=== PATIENT | female | born 2000 | race Caucasian/White ===

== ENCOUNTER 2019-05-02 10:36 | Inpatient (IN) ==
[2019-05-02 11:33] LABS: Appearance Urine Turbid (Clear); Bacteria Urine Automated 4+ (Negative); Bilirubin Urine Negative (Negative); Blood Urine 2+ (Negative); Color Urine Dark Yellow; Epithelial Cell Urine Auto >30 /lpf (0-5); Glucose Urine UA Negative (Negative); Ketones Urine 2+ (Negative); Leukocyte Esterase Urine 1+ (Negative); Nitrite Urine Negative (Negative); Protein Urine Trace (Negative); Specific Gravity Urine 1.025 (1.000-1.030); Urobilinogen Urine Negative (Negative); WBC Urine Automated >30 /hpf (0-5); pH Urine 6.5 (4.5-7.5)
[2019-05-02 11:47] LABS: Mucus Urine Present (None Prsent); RBC Urine Automated 0-4 /hpf (0-4)
[2019-05-02 12:01] LABS: Basophils # (auto) 0.04 K/uL (0-0.2); Basophils % (auto) 0.6 %; Eosinophils # (auto) 0.07 K/uL (0-0.5); Hematocrit (blood only) 42.9 % (37-47); Hemoglobin 14.5 g/dL (12.0-16.0); Immature Granulocytes # (auto) 0.02 K/uL (0.00-0.02); Immature Granulocytes % (auto) 0.3 %; Lymphocytes # (auto) 2.38 K/uL (1.2-3.4); Mean Corpuscular Hemoglobin 30.1 pg (25-34); Mean Corpuscular Hgb Conc 33.8 g/dL (32-36); Mean Corpuscular Volume 89.2 fL (80-100); Mean Platelet Volume 9.9 fL (7.4-10.4); Monocytes # (auto) 0.62 K/uL (0.11-0.59); Monocytes % (auto) 8.8 %; Neutrophils # (auto) 3.88 K/uL (1.4-6.5); Neutrophils % (auto) 55.3 %; Platelet Count 354 K/uL (130-400); RDW Standard Deviation 42.4 fL (36.4-46.3); Red Blood Count 4.81 M/uL (4.2-5.4); White Blood Count 7.01 K/uL (4.8-10.8)
[2019-05-02] MEDS ORDERED: LORazepam 0.5 MG TAB PO STA (12:10)
[2019-05-02] MEDS ORDERED: NICOTINE 7 MG/24 HR TDSY TD SCH (12:15)
[2019-05-02 12:19] LABS: Albumin Level 4.4 gm/dl (3.4-5.0); BUN Creatinine Ratio 10.3 (10-20); Calcium 9.8 mg/dl (8.5-10.1); Creatinine Clr Calc Pharmacy 80.8 ml/min; Est GFR (African American) 110.4; Est GFR (Non-African American) 95.3; Potassium 4.1 mmol/L (3.5-5.1)
[2019-05-02 12:29] LABS: Albumin Globulin Ratio 1.3 (0.9-2); Bilirubin,Total 0.6 mg/dl (0.2-1); Globulin 3.4 gm/dl (2.5-4.0); Thyroid Stimulating Hormone 1.02 uIu/ml (0.300-4.500); Total Protein 7.8 gm/dl (6.4-8.2)
[2019-05-02] MEDS ORDERED: CEFDINIR 300 MG CAP PO STA (12:44)
--- NOTE | 2019-05-02 12:44 | Emergency Department Note ---
Entered by Sasha Nicholas acting as a scribe for History of Present Illness General Chief complaint: Mental Health Evaluation Stated complaint: SEVERE DEPRESSION, SADNESS Time Seen by Provider: 05/02/19 11:49 Source: patient History of Present Illness Provider complaint: Worsening Depression Onset (ago): week(s) 1 Location: head Relieved By: + none Exacerbated By: + other (Stress) Associated symptoms: + loss of appetite and + other (Positive SI, panic attacks, difficulty sleeping) The patient is a 18 year old female who presents to the Emergency Room with complaints of worsening depression that began about 1 week ago. The patient states that her symptoms are exacerbated by the stress of her boyfriend breaking up with her and not relieved by anything specific. The patient reports experiencing loss of appetite and difficulty sleeping. Additionally, the patient reports experiencing suicidal ideations with a plan to cut herself and "bleed out" as well as panic attacks several times a day that last about 10-20 minutes at a time. The patient notes that she had a previous suicide attempt by cutting in October 2017 but did not tell anyone. The patient denies any history of previous inpatient treatment or history of any psychiatric medications. Additionally, the patient mentioned that there is family history of depression and suicide attempts on her mother's side. Home Medications Home Medications Medication Instructions Recorded Confirmed Type phenazopyridine [Azo Urinary Pain 97.5 mg PO DAILY PRN 05/02/19 05/02/19 History Relief] Allergies Allergy/AdvReac Type Severity Reaction Status Date / Time amoxicillin Allergy Rash Verified 05/02/19 12:59 doxycycline Allergy Rash Verified 05/02/19 12:59 Past Med/Surg History Medical History Depression (Acute) Suicide gesture (Acute) Family History Other Depression Social History Preferred Language: Slovenian Communication Ability: Effective Internet Marketing Intern Required: No Beliefs That Will Affect Care: None Feels Safe at Home: Yes Smoking Status: Current every day smoker (4 cigarettes daily) Tobacco Type: cigarettes ; Review of Systems See HPI for pertinent positives & negatives. and A total of 10 systems reviewed and were otherwise negative Physical Exam Vital Signs Vital Signs - 24 hr 05/02/19 10:43 05/02/19 12:36 Temperature 37.2 C Temperature Source Oral Pulse Rate 108 H Pulse Rate [Finger] 63 Respiratory Rate 16 17 Respiratory Effort / Characteristics Non-Labored Spontaneous Non-Labored Spontaneous Respiratory Depth Normal Normal Respiratory Pattern Regular Blood Pressure 135/87 Blood Pressure [Left Arm] 109/68 Blood Pressure Mean 103 Blood Pressure Mean [Left Arm] 81 Blood Pressure Position Sitting Pulse Oximetry 98 99 Oxygen Delivery Method Room Air Room Air Sepsis Recent Fever Within 48 Hours No Sepsis New/Unexplained Change in Mental Status No Sepsis Action Taken by Nursing No Action Required GENERAL: Patient is awake, alert, and in no acute distress. Patient is tearful, resting comfortably and showing some signs of anxiety. EYES: The conjunctivae are clear. The pupils are round and reactive. EARS, NOSE, MOUTH AND THROAT: The nose is without any evidence of any deformity. Mucous membranes are moist.Tongue is midline NECK: The neck is nontender and supple. RESPIRATORY: Normal respiratory effort is noted. There is no evidence of wheezing rhonchi or rales to auscultation. CARDIOVASCULAR: Regular rate and rhythm noted. There no murmurs rubs or gallops normal S1 normal S2 GASTROINTESTINAL: The abdomen is soft. Bowel sounds are present in all quadrants. Abdomen is nontender. MUSCULOSKELETAL/EXTREMITIES: There is no evidence of gross deformity. Full range of motion is noted in the hips and shoulders. SKIN: There is no obvious evidence of any rash. There are no petechiae, pallor or cyanosis noted. NEUROLOGIC: Patient is awake alert and oriented x3. PSYCH: Patient makes good eye contact for most of evaluation. Tearful and admits to suicidal ideation with plans to cut herself. Course Course 1205: Past medical records reviewed. The patient was evaluated in room A07. A complete history and physical exam was performed. 1350: The patient was accepted to [address] [place] [address]. Administered Medications Discontinued Medications Cefdinir (Omnicef Cap) 300 mg PO ONE STA Stop: 05/02/19 12:45 Last Admin: 05/02/19 13:01 Dose: 300 mg Documented by: [id number] Lorazepam (Ativan) 0.5 mg PO NOW STA Stop: 05/02/19 12:11 Last Admin: 05/02/19 12:27 Dose: 0.5 mg Documented by: [id number] Nicotine (Nicoderm Cq) 7 mg TD QAM MIL[place] Stop: 06/01/19 12:14 Last Admin: 05/02/19 13:00 Dose: 7 mg Documented by: [id number] Sertraline HCl (Zoloft) 25 mg PO NOW ONE Stop: 05/02/19 16:44 Last Admin: 05/02/19 17:14 Dose: 25 mg Documented by: [id number] Medical Decision Making Differential Diagnosis Differential diagnosis: Etiologies such as psychiatric disorder, infection, hypoglycemia, electrolyte abnormalities, cardiac sources, intracerebral event, toxicological process, neurologic disorder, as well as others were entertained. Medical Records Attestation: I reviewed the patient's medical records. Home Medications Current Medication List: was personally reviewed by me Laboratory Data Attestation: I reviewed the patient's lab results. Result diagrams: 05/02/19 11:39 05/02/19 11:39 Lab Results 05/02/19 05/02/19 05/02/19 Range/Units 11:00 11:00 11:39 WBC 7.01 (4.8-10.8) K/uL RBC 4.81 (4.2-5.4) M/uL Hgb 14.5 (12.0-16.0) g/dL Hct 42.9 (37-47) % MCV 89.2 (80-100) fL MCH 30.1 (25-34) pg MCHC 33.8 (32-36) g/dL RDW Std Deviation 42.4 (36.4-46.3) fL RDW Coeff of Vandana 13.0 (11.5-14.5) % Plt Count 354 (130-400) K/uL MPV 9.9 (7.4-10.4) fL Immature Gran % (Auto) 0.3 % Neut % (Auto) 55.3 % Lymph % (Auto) 34.0 % Appling % (Auto) 8.8 % Eos % (Auto) 1.0 % Baso % (Auto) 0.6 % Immature Gran # (Auto) 0.02 (0.00-0.02) K/uL Neut # (Auto) 3.88 (1.4-6.5) K/uL Lymph # (Auto) 2.38 (1.2-3.4) K/uL Appling # (Auto) 0.62 H (0.11-0.59) K/uL Eos # (Auto) 0.07 (0-0.5) K/uL Baso # (Auto) 0.04 (0-0.2) K/uL Sodium (136-145) mmol/L Potassium (3.5-5.1) mmol/L Chloride (98-107) mmol/L Carbon Dioxide (21-32) mmol/L Anion Gap (3-11) BUN (7-18) mg/dl Creatinine (0.6-1.2) mg/dl Est Cr Clr Drug Dosing ml/min Est GFR ( Amer) Est GFR (Non-Af Amer) BUN/Creatinine Ratio (10-20) Glucose (70-99) mg/dl Calcium (8.5-10.1) mg/dl Total Bilirubin (0.2-1) mg/dl AST (15-37) U/L ALT (12-78) U/L Alkaline Phosphatase (45-117) U/L Total Protein (6.4-8.2) gm/dl Albumin (3.4-5.0) gm/dl Globulin (2.5-4.0) gm/dl Albumin/Globulin Ratio (0.9-2) TSH (0.300-4.500) uIu/ml Urine Color Dark Yellow Urine Appearance Turbid A (Clear) Urine pH 6.5 (4.5-7.5) Ur Specific Freedom 1.025 (1.000-1.030) Urine Protein Trace H (Negative) Urine Glucose (UA) Negative (Negative) Urine Ketones 2+ H (Negative) Urine Blood 2+ H (Negative) Urine Nitrite Negative (Negative) Urine Bilirubin Negative (Negative) Urine Urobilinogen Negative (Negative) Ur Leukocyte Esterase 1+ H (Negative) Urine WBC (Auto) >30 H (0-5) /hpf Urine RBC (Auto) 0-4 (0-4) /hpf U Hyaline Cast (Auto) 5-10 H (0-5) /lpf U Epithel Cells (Auto) >30 H (0-5) /lpf Urine Bacteria (Auto) 4+ H (Negative) Granular Casts 1-5 H (0) /lpf Urine Mucus Present A (None Prsent) Urine Test (Negative) Urine Opiates Screen Neg (Neg) Ur Methadone, Qual Neg (Neg) Urine Barbiturates Neg (Neg) Ur Phencyclidine (PCP) Neg (Neg) U Amphetamin/Meth Scrn Neg (Neg) MDMA (Ecstasy) Screen Neg (Neg) U Benzodiazepines Scrn Neg (Neg) Ur Cocaine Metabolite Neg (Neg) U Marijuana (THC) Screen Pos H (Neg) Ethyl Alcohol mg/dL (0-3) mg/dl 05/02/19 05/02/19 05/02/19 Range/Units 11:39 11:39 12:20 WBC (4.8-10.8) K/uL RBC (4.2-5.4) M/uL Hgb (12.0-16.0) g/dL Hct (37-47) % MCV (80-100) fL MCH (25-34) pg MCHC (32-36) g/dL RDW Std Deviation (36.4-46.3) fL RDW Coeff of Vandana (11.5-14.5) % Plt Count (130-400) K/uL MPV (7.4-10.4) fL Immature Gran % (Auto) % Neut % (Auto) % Lymph % (Auto) % Appling % (Auto) % Eos % (Auto) % Baso % (Auto) % Immature Gran # (Auto) (0.00-0.02) K/uL Neut # (Auto) (1.4-6.5) K/uL Lymph # (Auto) (1.2-3.4) K/uL Appling # (Auto) (0.11-0.59) K/uL Eos # (Auto) (0-0.5) K/uL Baso # (Auto) (0-0.2) K/uL Sodium 140 (136-145) mmol/L Potassium 4.1 (3.5-5.1) mmol/L Chloride 108 H (98-107) mmol/L Carbon Dioxide 28 (21-32) mmol/L Anion Gap 4.0 (3-11) BUN 9 (7-18) mg/dl Creatinine 0.88 (0.6-1.2) mg/dl Est Cr Clr Drug Dosing 80.8 ml/min Est GFR ( Amer) 110.4 Est GFR (Non-Af Amer) 95.3 BUN/Creatinine Ratio 10.3 (10-20) Glucose 90 (70-99) mg/dl Calcium 9.8 (8.5-10.1) mg/dl Total Bilirubin 0.6 (0.2-1) mg/dl AST 11 L (15-37) U/L ALT 12 (12-78) U/L Alkaline Phosphatase 51 (45-117) U/L Total Protein 7.8 (6.4-8.2) gm/dl Albumin 4.4 (3.4-5.0) gm/dl Globulin 3.4 (2.5-4.0) gm/dl Albumin/Globulin Ratio 1.3 (0.9-2) TSH 1.020 (0.300-4.500) uIu/ml Urine Color Urine Appearance (Clear) Urine pH (4.5-7.5) Ur Specific Freedom (1.000-1.030) Urine Protein (Negative) Urine Glucose (UA) (Negative) Urine Ketones (Negative) Urine Blood (Negative) Urine Nitrite (Negative) Urine Bilirubin (Negative) Urine Urobilinogen (Negative) Ur Leukocyte Esterase (Negative) Urine WBC (Auto) (0-5) /hpf Urine RBC (Auto) (0-4) /hpf U Hyaline Cast (Auto) (0-5) /lpf U Epithel Cells (Auto) (0-5) /lpf Urine Bacteria (Auto) (Negative) Granular Casts (0) /lpf Urine Mucus (None Prsent) Urine Test Negative (Negative) Urine Opiates Screen (Neg) Ur Methadone, Qual (Neg) Urine Barbiturates (Neg) Ur Phencyclidine (PCP) (Neg) U Amphetamin/Meth Scrn (Neg) MDMA (Ecstasy) Screen (Neg) U Benzodiazepines Scrn (Neg) Ur Cocaine Metabolite (Neg) U Marijuana (THC) Screen (Neg) Ethyl Alcohol mg/dL < 3.0 (0-3) mg/dl Blood Pressure Blood Pressure Findings: Normal blood pressure Blood Pressure Disposition: further management by hospitalist ANGEL Lopez The patient is a 18-year-old female who presented to the emergency department for an evaluation mental health problems. The patient has had significant stressors recently. Her and her significant other recently broke up. She is had suicidal ideation with a plan to cut herself and bleed. The patient was medically cleared in the emergency department but does appear to have signs of urinary tract infection on urinalysis. She was treated with an antibiotic. I discussed the patient's laboratory results with her. She was also treated with medication for anxiety. She was evaluated by the mental health case specialist. She was felt to be a good candidate for inpatient management. She was referred to [facility] for possible inpatient management. This referral still pending. The patient was feeling somewhat improved on reevaluation. Ultimately the patient was evaluated by [facility] and was felt to be a good candidate. She was admitted to [facility] The 201 was signed by myself. Impression & Plan Depression, Suicidal ideation, UTI (urinary tract infection) Discharge Plan Visit Data *Final* Discharge Date/Time: 05/02/19 13:50 Chief Complaint: Mental Health Evaluation Stated Complaint: SEVERE DEPRESSION, SADNESS ED Provider: Demetrius Garcia Discharge Problem: Depression, Suicidal ideation, UTI (urinary tract infection) Patient Disposition: Admitted As Inpatient Discharge Instructions Interventions: ED Discharge Assessment Last Done: 05/02/19 13:50 Discharge Problem: Depression Qualifiers: Depression Type: unspecified Qualified Code(s): F32.9 - Major depressive disorder, single episode, unspecified UTI (urinary tract infection) Qualifiers: Urinary tract infection type: site unspecified Hematuria presence: without hematuria Qualified Code(s): N39.0 - Urinary tract infection, site not specified The scribe's documentation has been prepared under my direction and personally reviewed by me in its entirety. I confirm that the note above accurately reflects all work, treatment, procedures, and medical decision making performed by me.
[2019-05-02 12:47] LABS: Pregnancy Test, Urine Negative (Negative)
[2019-05-02 13:05] LABS: Amphetamines+Metham, Urine Neg (Neg); Barbiturates, Urine Neg (Neg); Benzodiazepine, Urine Neg (Neg); Cocaine, Urine Neg (Neg); MDMA (Ecstacy), Urine Neg (Neg); Methadone, Urine Neg (Neg); Opiate, Urine Neg (Neg); Phencyclidine, Urine Neg (Neg)
[2019-05-02] MEDS ORDERED: ALUMINUM/MAGNESIUM SUSP 30 ML UDC PO PRN (13:28)
[2019-05-02] MEDS ORDERED: BISMUTH SUBSALICYLATE PER ML OMNICELL CHARGE PO PRN (13:28)
[2019-05-02] MEDS ORDERED: ACETAMINOPHEN 325 MG TAB PO PRN (13:28)
[2019-05-02] MEDS ORDERED: MAGNESIUM HYDROXIDE SUSP 30 ML UDC PO PRN (13:28)
[2019-05-02] MEDS ORDERED: SODIUM CHLORIDE 0.65% NA SOLN 45 ML (OCEAN) PRN (13:28)
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
[2019-05-02] MEDS ORDERED: SERTRALINE HCL 50 MG TABLET PO ONE (16:43)
[2019-05-02] MEDS ORDERED: PHENAZOPYRIDINE HCL 100 MG TAB PO PRN (16:50)
[2019-05-02] MEDS: NICOTINE POLACRILEX 2 MG GUM MT PRN (20:50)
[2019-05-03] MEDS ORDERED: SERTRALINE HCL 50 MG TABLET PO SCH (09:00)
[2019-05-03] MEDS: NICOTINE POLACRILEX 2 MG GUM MT PRN ×3 (09:16→13:59)
[2019-05-03] MEDS: NICOTINE 7 MG/24 HR TDSY TD SCH (09:17)
--- NOTE | 2019-05-03 17:12 | Psychiatric Progress Note ---
Date of Service May 03, 2019 Impression / Recommendations Impression 18-year-old female admitted voluntarily for inpatient psychiatric hospitalization due to worsening symptoms of depression and suicidal ideation with plan to deeply cut herself. Pt reports a history of depression and anxiety, but significant worsening of symptoms after a recent break-up with her boyfriend of 1.5 years. Pt had a previous trial of fluoxetine with limited response. She is requesting initiation of medication to target anxiety and depressive symptoms. Encouraged therapeutic intervention to process events of the break-up, but also discussed SSRI initiation based on history of anxiety and depression diagnosis. Risks, benefits, and potential side effects of sertraline reviewed. Pt verbalized understanding and is agreeable with initiating the medication. Pt also questions the diagnosis of borderline personality disorder, reporting a family history of the condition and admitting to identifying with several of the criteria. Will gather collateral information from family and continue to educate on the diagnosis. Encouraged routine outpatient therapy to address development of healthy and effective coping strategies. Will encourage patient involve parents in a family meeting to discuss aftercare and safety planning. She will be encouraged to participate in group and recreational programming. Pt does admit to continued suicidality and inability to contract for safety outside of the hospital setting. Inpatient psychiatric treatment is medically necessary based on previous suicide attempt, ongoing suicidal ideation, and limited opportunity at this point to appropriately mitigate risk factors. She is at high risk of suicide if discharged prematurely. The patient, herself, tells me that she knows about the diagnosis of borderline personality disorder because her mother carries that diagnoses and she is familiar with many of her mother's symptoms. She feels that she, the patient, may have at least certain borderline traits, but she also believes that she may not have the actual disorder. Specifically, she is able to self identify her tendency to avoid and greatly fear abandonment, and her tendency to idealize others, and her propensity towards relying on the feedback of others as a means of forming her identity. At the same time, the patient has been able to maintain long-term friendships, and while she recognizes that she had allowed herself, in an unhealthy way, to become overly dependent upon her boyfriend and overly "clingy," she does clearly have insight into the situation and recognizes that her future happiness is going to need to come primarily from inside. She also says that she recognizes that she may be falling into a pattern that is similar to that of her mother, namely falling into dependent relationships with men. Specifically, she is the patient uses the phrase "modeled [behavior]" within this context. She does not have a history of favorable response to fluphenazine at higher dosages. She is currently tolerating sertraline well. Difficulty sleeping is a contributory factor, the patient is spending a great deal of time in the middle of the night ruminating. "By morning, my thoughts of suicide have returned," the patient states. While the patient clearly does have difficulty regulating her mood, I am not convinced that she would be criteria for borderline personality disorder. Instead, she is 18, has not had a great deal of life experiences, understands that she is overreacting to a romantic disappointment, has been able to maintain longstanding close relationships, and, while not necessarily inconsistent with borderline personality disorder, the patient is fairly high functioning in a number of spheres. (1) Suicidal ideation: 05/02 - Admitted to a locked inpatient behavioral health unit, on q15 minute safety checks - Encourage medication initiation/adjustments as indicated - Encourage participation in group and recreational therapies - Gather collateral information from outpatient providers - Suggest family meeting to involve outpatient supports in safety planning - Arrange appropriate aftercare 05/03 -The patient continues to say that it is hard for her to imagine the future without her boyfriend. She notes that, intellectually, she realizes that she is young, "there plenty of fish in the sea," and that it is unhealthy and unwise to allow oneself to designate to another person responsibility for ones on happiness. However, there is fear of being alone, losing her boyfriend permanently, and combining those thoughts with the fact that she believes that she, herself, "poisoned" the relationship by being excessively possessive and inappropriately jealous is greatly distressing to her. -The patient continues to note that she is having thoughts of suicide, although she reliably and convincingly contracts for safety on the unit. (2) Generalized anxiety disorder: 05/02 - Historical diagnosis of generalized anxiety disorder, with history of panic attacks as well - Initiate sertraline 25mg one-time dose today; increasing to 50mg qAM starting tomorrow morning - risks, benefits, and potential side effects reviewed including black box warning for increased suicidality in children and adolescents - patient verbalized understanding and is agreeable with initiating the medication - PRN hydroxyzine for acute anxiety - Encourage participation in group and recreational programming, development of healthy and effective coping strategies - Encourage outpatient therapy and psychiatric medication management - Family meeting with parents 05/03 -The patient tells us that her mother regularly tells the patient that she, the patient, has many of the same traits as the mother, a woman who reportedly carries a diagnosis of borderline personality disorder. Within this context, it will be important to help the patient differentiate between herself, her mother symptoms, and her own struggles. -The patient has tolerated sertraline well, and we will increase the dose of sertraline to 75 mg starting tomorrow. Hopefully, sertraline will be helpful both for depression and anxiety. (3) Depression: 05/02 - Historical diagnosis of major depressive disorder. Current presentation may be more consistent with diagnosis of adjustment disorder or acute stress reaction. Pt also identifies with borderline personality disorder traits which may affect ability to cope and may be further contributing to depressive symptoms, if not explaining them entirely - Sertraline initiated for generalized anxiety as above, likely to also have benefit for mood symptoms - Encourage group and recreational programming to process recent break-up and develop healthy and effective coping strategies 05/03 -Patient does have a history of recurrent depressions. These depressions are not necessarily linked to situational factors and cannot be explained entirely by maladaptive coping strategies and difficulty regulating mood under stress. -As above, the patient's dose of sertraline will be increased to 75 mg tomorrow, and will continue to be titrated as indicated. We will also add trazodone 50 mg at bedtime for sleep, and also as an adjunct to sertraline. -The patient seems to have a good facility with operational thinking and I believe that she will benefit from psychotherapy, possibly cognitive behavioral therapy. This should be pursued on an outpatient basis. (4) Personality disorder: 05/02 - Pt reports identification with criteria for borderline personality disorder. Unclear with limited history if symptoms are stemming for personality disorder or better explained by learned behaviors in how to manage relationships - given family history of borderline personality disorder - Strained and co-dependent traits within relationships - Encourage routine visits with a consistent outpatient therapist - explore DBT practices - Gather collateral information from parents to further determine history of symptoms and consistency with this diagnosis 05/03 -Interestingly, the patient is able to tell us which personality traits she believes that she shares with her mother, a woman who reportedly carries a diagnosis of borderline personality disorder. -Some of the behaviors in question seem to have been modeled by the patient's mother, most specifically the instilled belief that ones happiness depends almost entirely on once finding a universally faithful life partner. However, there also appears to be a number of ways in which the patient is not like her mother, and it may be more useful to focus on treating the patient's depression, and helping the patient address issues specific to low self-esteem and immature coping strategies. (5) Abnormal urinalysis: 05/02 - Pt reports frequent, recurrent UTI's and yeast infections - denying present symptoms - Pt was given initial dose of Cefdinir 300mg in the ED; will suspend antibiotic treatment until/unless symptoms are present - Sensitivities ordered in order to guide antibiotic therapy should it be indicated 05/03 -No symptoms of a UTI are reported today. Inventory Assets Strengths: Willingness for treatment, outpatient psychiatric evaluations already scheduled Needs: assistance with development of effective coping strategies, involvement of parents in treatment Risk Factors Assessment Male: No : Yes Do You Have Access To A Gun?: No Health Problems: No Mental Health Diagnoses: Yes Substance Use Disorders: No Previous Attempt: Yes Previous Attempt; Didn't Tell Anyone: Yes Family History of Suicide: Yes Previous Psychiatric Hospitalization: No Hopelessness: Yes Smoker: Yes Protective Factors Assessment Restorationist Beliefs: No : No Responsible for Young Children: No Employed: Yes ([employer]) Stable Relationships: No Supportive Family: Yes Interval History Chief Complaint "I'm having trouble coping." Review of Systems Sleep Information Total Hours of Sleep: 5.75 Sleep Comments: Elizabet sat up talking with room mate prior to going to bed. Meal Information Percent Meal Consumed - Breakfast: 75 Percent Meal Consumed - Lunch: 50 Percent Meal Consumed - Dinner: 50 Subjective Subjective Patient was seen & assessed and interval progress reviewed with treatment team. I met with the patient individually in order to assess her current mental status, evaluate her response to treatment, make any necessary changes in the patient's treatment regimen together with the patient, and address issues, questions and concerns that may arise. The patient began today by describing the circumstances that had led to her admission. Specifically, she reports that she had been in a fairly long-term relationship with a boyfriend and had allowed herself to become emotionally dependent upon him. The patient notes that the relationship seemed to be "perfect" and she had felt as if the boyfriend was "exactly the right fit." However, she acknowledges that within that context she became progressively more "clingy," and, primarily out of a fear of losing him, she began to progressively overinterpret (her word) things that might be considered to be subtle signs that he was detaching from her, or was pursuing a different romantic interest. The relationship was also complicated by the fact that she has a job that requires her to work a standard "9 to 5" workday, while her boyfriend is an assistant corporation counsel at a local [employer], works afternoons and evenings, and sometimes does not get home until approximately 2 AMjust about 4 hours before the patient has to awaken to go to work. She explains, "since last summer, we tried to base the relationship on seeing each other for a few hours in the middle of the night, and I lost a lot of sleep because of it. Also, he was not necessarily ready to go right to bed when he came home, but if he did not we did not see each other at all, except for maybe on days off." The patient said that she had insight into the fact that she was being overly dependent on the relationship and that she was sometimes accusing him of imagined infidelities when no true compelling evidence existed, and when he eventually told her last week that he wanted to "end the relationship, but stay friends," she was overwhelmed by self recrimination for having made things so unpleasant for him through her false accusations. She also notes that his abruptly ending the relationship was always her worst fear. The patient goes on to explain that her mother carries a diagnosis of jack rderline personality disorder, and, further and within this context, has always been entirely emotionally dependent on her ; i.e., the patient's father. The patient notes that she feels that perhaps she has developed some of her mother's borderline personality traits, particularly her fear of abandonment and her difficulty tolerating being alone. She acknowledges that she has a history of 2 previous suicide attempts, earlier in her teenage years. In one instance, she drank a small amount of nail yoruba remover, brought the matter to her mother's attention, received medical attention, but was not hospitalized. In another more recent occurrence, the patient cut her thigh with a sharp object. Her suicidal thoughts at the time of admission included the thought of using a card boxer or razor blade to cut her thighs and from exsanguination. She acknowledges that she had not been able to contract for safety, and notes that she continues to have thoughts of suicide, although she is able to contract for safety in the hospital. Staff report is that the patient has been fairly active in the milieu, and also is participating actively in treatment. The patient has been started on sertraline and her current dose is 50 mg a day. The various side effects of sertraline were reviewed with the patient, and she said that, so far, she has not experienced anywith the possible exception of fatigue, although she also notes that she has been sleeping very poorly and believes that, in all likelihood, her somnolence is related to her poor sleep. Her specific report regarding sleep is that she awakens frequently throughout the night, ruminates about the loss of her relationship, and has difficulty falling back to sleep. Report that she had slept nearly 6 hours last night as refused by the patient, and she says "I did not get out of bed, I may have My shot, but I was awake for a lot of the time last night." We also discussed various treatment options for insomnia and depression. Physical Exam Psychiatric Orientation: alert, oriented x 3 and cooperative Apperance: appropriately dressed and appropriately groomed Eye Contact: good eye contact Motor Behavior: steady gait and station She sits in a chair with her legs elevated and her chin on her knees, and rocks gently [id number] during much of the interview. Speech: normal rate/rhythm/volume of speech Affect: + tearful affect The patient also smiles appropriately. Mood: + depressed mood Thought Process: goal directed thought process and linear/logical thought process Thought Content: reality based without delusions Suicidal Thoughts: + reports suicidal thoughts Patient reports that she is continuing to have thoughts of suicide, although her mood has gotten somewhat better. She is peter for safety in the hospital. Homicidal Thoughts: denies homicidal thoughts Hallucinations: no auditory hallucinations Cognition: recent memory grossly intact, remote memory grossly intact, attention grossly intact and language grossly intact Estimated Intelligence: + above average estimated intelligence This is based on the patient's vocabulary, ability to think in the abstract, and fund of knowledge. Insight: good insight Judgement: + limited judgement Vital Signs (Past 24 Hours) Last Vital Signs Temp 36.6 C 05/03/19 06:00 Pulse 66 05/03/19 06:00 Resp 16 05/03/19 06:00 BP 129/74 05/03/19 06:00 Pulse Ox 99 05/02/19 13:50 Results & Data Current Inpatient Medications Current Inpatient Medications: Current Inpatient Medications Acetaminophen (Tylenol) 650 mg PO Q4H PRN PRN Reason: Headache or Minor Fever Stop: 06/01/19 13:27 Al Hydrox/Mg Hydrox/Simethicone (Maalox) 30 ml PO Q4H PRN PRN Reason: GI Upset Stop: 06/01/19 13:27 Bismuth Subsalicylate (Kaopectate) 15 ml PO PRN PRN PRN Reason: Loose Stool Stop: 06/01/19 13:27 Hydroxyzine HCl (Vistaril) 50 mg PO HSZ PRN PRN Reason: Insomnia Stop: 06/01/19 13:27 Hydroxyzine HCl (Vistaril) 25 mg PO Q4H PRN PRN Reason: Anxiety Stop: 06/01/19 13:27 Magnesium Hydroxide (Milk Of Magnesia) 30 ml PO DAILY PRN PRN Reason: Constipation Stop: 06/01/19 13:27 Miscellaneous (Remove Nicoderm Patch) 1 ea N/A DAILY@[id number] [facility] Stop: 06/02/19 08:58 Last Admin: 05/03/19 09:22 Dose: 1 ea Documented by: Nicotine (Nicoderm Cq) 7 mg TD [facility] Stop: 06/02/19 08:59 Last Admin: 05/03/19 09:17 Dose: 7 mg Documented by: Nicotine Polacrilex (Nicorette 2mg) 1 piece MT PRN PRN PRN Reason: Nicotine Withdrawal Stop: 06/01/19 13:32 Last Admin: 05/03/19 13:59 Dose: 1 piece Documented by: Phenazopyridine HCl (Pyridium) 100 mg PO DAILY PRN PRN Reason: DYSURIA/URINARY DISCOMFORT Stop: 06/01/19 16:49 Sertraline HCl (Zoloft) 50 mg PO QAM [facility] Stop: 06/02/19 08:59 Last Admin: 05/03/19 09:10 Dose: 50 mg Documented by: Sodium Chloride ([place] Nasal) 1 - 2 sprays NA PRN PRN PRN Reason: Nasal Dryness/Congestion Stop: 06/01/19 13:27 Mental Health & Subst Abuse Tx Psychiatrist Name of Psychiatrist: Jersey De La Torre - Dr. Layla Alejandro Psychiatrist's Phone Number: Date of Appointment with Psychiatrist: 06/10/19 Time of Appointment with Psychiatrist: 9:15 AM Therapist Name of Therapist: Alec Smith Therapist's Phone Number: Date of Therapist Appointment: 05/14/19 Time of Therapist Appointment: 2:00 PM Software Quality Specialist Name of Software Quality Specialist: None Post Discharge Appointments Primary Care Physician Name Of Family Doctor: Jersey De La Torre- [facility] Phone Number: Date of Appointment with PCP: 05/10/19 Time of Appointment with PCP: 1:25 PM Contact Information Discharge Discharge Address: [address] [place] [address] [id number] (1) Depression Depression Type: unspecified Qualified Code(s): F32.9 - Major depressive disorder, single episode, unspecified
[2019-05-03] MEDS: TRAZODONE HCL 50 MG TAB PO SCH (21:51)
[2019-05-04 07:56] LABS: Marijuana Quant, GCMS Urine 1290 ng/mL (<5)
[2019-05-04] MEDS ORDERED: TRAZODONE HCL 50 MG TAB PO PRN (10:00)
[2019-05-04] MEDS: SERTRALINE HCL 50 MG TABLET PO SCH (10:03)
[2019-05-04] MEDS: NICOTINE 7 MG/24 HR TDSY TD SCH (10:05)
[2019-05-04] MEDS: NICOTINE POLACRILEX 2 MG GUM MT PRN (12:06)
--- NOTE | 2019-05-04 13:07 | Psychiatric Progress Note ---
Date of Service May 04, 2019 Impression / Recommendations Impression 18-year-old female admitted voluntarily for inpatient psychiatric hospitalization due to worsening symptoms of depression and suicidal ideation with plan to deeply cut herself. She remains at significant risk of d ecompensation if released prematurely. (1) Suicidal ideation: 05/02 - Admitted to a locked inpatient behavioral health unit, on q15 minute safety checks - Encourage medication initiation/adjustments as indicated - Encourage participation in group and recreational therapies - Gather collateral information from outpatient providers - Suggest family meeting to involve outpatient supports in safety planning - Arrange appropriate aftercare 05/03 -The patient continues to say that it is hard for her to imagine the future without her boyfriend. She notes that, intellectually, she realizes that she is young, "there plenty of fish in the sea," and that it is unhealthy and unwise to allow oneself to designate to another person responsibility for ones on happiness. However, there is fear of being alone, losing her boyfriend permanently, and combining those thoughts with the fact that she believes that she, herself, "poisoned" the relationship by being excessively possessive and inappropriately jealous is greatly distressing to her. -The patient continues to note that she is having thoughts of suicide, although she reliably and convincingly contracts for safety on the unit. (2) Generalized anxiety disorder: 05/02 - Historical diagnosis of generalized anxiety disorder, with history of panic attacks as well - Initiate sertraline 25mg one-time dose today; increasing to 50mg qAM starting tomorrow morning - risks, benefits, and potential side effects reviewed including black box warning for increased suicidality in children and adolescents - patient verbalized understanding and is agreeable with initiating the medication - PRN hydroxyzine for acute anxiety - Encourage participation in group and recreational programming, development of healthy and effective coping strategies - Encourage outpatient therapy and psychiatric medication management - Family meeting with parents 05/03 -The patient tells us that her mother regularly tells the patient that she, the patient, has many of the same traits as the mother, a woman who reportedly carries a diagnosis of borderline personality disorder. Within this context, it will be important to help the patient differentiate between herself, her mother symptoms, and her own struggles. -The patient has tolerated sertraline well, and we will increase the dose of sertraline to 75 mg starting tomorrow. Hopefully, sertraline will be helpful both for depression and anxiety. (3) Depression: 05/02 - Historical diagnosis of major depressive disorder. Current presentation may be more consistent with diagnosis of adjustment disorder or acute stress reaction. Pt also identifies with borderline personality disorder traits which may affect ability to cope and may be further contributing to depressive symptoms, if not explaining them entirely - Sertraline initiated for generalized anxiety as above, likely to also have benefit for mood symptoms - Encourage group and recreational programming to process recent break-up and develop healthy and effective coping strategies 05/03 -Patient does have a history of recurrent depressions. These depressions are not necessarily linked to situational factors and cannot be explained entirely by maladaptive coping strategies and difficulty regulating mood under stress. -As above, the patient's dose of sertraline will be increased to 75 mg tomorrow, and will continue to be titrated as indicated. We will also add trazodone 50 mg at bedtime for sleep, and also as an adjunct to sertraline. -The patient seems to have a good facility with operational thinking and I believe that she will benefit from psychotherapy, possibly cognitive behavioral therapy. This should be pursued on an outpatient basis. (4) Personality disorder: 05/02 - Pt reports identification with criteria for borderline personality d isorder. Unclear with limited history if symptoms are stemming for personality disorder or better explained by learned behaviors in how to manage relationships - given family history of borderline personality disorder - Strained and co-dependent traits within relationships - Encourage routine visits with a consistent outpatient therapist - explore DBT practices - Gather collateral information from parents to further determine history of symptoms and consistency with this diagnosis 05/03 -Interestingly, the patient is able to tell us which personality traits she believes that she shares with her mother, a woman who reportedly carries a diagnosis of borderline personality disorder. -Some of the behaviors in question seem to have been modeled by the patient's mother, most specifically the instilled belief that ones happiness depends almost entirely on once finding a universally faithful life partner. However, there also appears to be a number of ways in which the patient is not like her mother, and it may be more useful to focus on treating the patient's depression, and helping the patient address issues specific to low self-esteem and immature coping strategies. (5) Abnormal urinalysis: 05/02 - Pt reports frequent, recurrent UTI's and yeast infections - denying present symptoms - Pt was given initial dose of Cefdinir 300mg in the ED; will suspend antibiotic treatment until/unless symptoms are present - Sensitivities ordered in order to guide antibiotic therapy should it be indicated 05/03 -No symptoms of a UTI are reported today. Inventory Assets Strengths: Willingness for treatment, outpatient psychiatric evaluations already scheduled Needs: assistance with development of effective coping strategies, involvement of parents in treatment Risk Factors Assessment Male: No : Yes Do You Have Access To A Gun?: No Health Problems: No Mental Health Diagnoses: Yes Substance Use Disorders: No Previous Attempt: Yes Previous Attempt; Didn't Tell Anyone: Yes Family History of Suicide: Yes Previous Psychiatric Hospitalization: No Hopelessness: Yes Smoker: Yes Protective Factors Assessment Worship Beliefs: No : No Responsible for Young Children: No Employed: Yes ([employer]) Stable Relationships: No Supportive Family: Yes Interval History Chief Complaint "I'm feeling a little better than when I came in". Review of Systems Sleep Information Total Hours of Sleep: 6 Sleep Comments: Elizabet sat up talking with room mate prior to going to bed. Meal Information Percent Meal Consumed - Breakfast: 50 Percent Meal Consumed - Lunch: 50 Percent Meal Consumed - Dinner: 75 Subjective Subjective Patient was seen & assessed and interval progress reviewed with nursing and social work. States she felt jittery for a bit yesterday afternoon. No GI concerns. States her UTIs and pelvic issues have been ongoing for months. Review of chart reveals given 1 dose cephalosporin in ED, today culture came back essentially mixed skin karol, no sensitities to follow. will need family meeting. Physical Exam Psychiatric Orientation: alert Apperance: appropriately dressed and appropriately groomed Motor Behavior: steady gait and station Speech: normal rate/rhythm/volume of speech Affect: + depressed affect Mood: + depressed mood Thought Process: linear/logical thought process Thought Content: no delusions Suicidal Thoughts: denies suicidal thoughts Homicidal Thoughts: denies homicidal thoughts Hallucinations: no auditory hallucinations and no visual hallucinations Cognition: recent memory grossly intact and language grossly intact Estimated Intelligence: consistent with education level Insight: + limited insight Judgement: + limited judgement Vital Signs (Past 24 Hours) Last Vital Signs Temp 36.6 C 05/04/19 06:45 Pulse 66 05/04/19 06:46 Resp 18 05/04/19 06:45 BP 128/90 05/04/19 06:46 Pulse Ox 99 05/02/19 13:50 Results & Data Laboratory Results Laboratory Results - last 24 hr 05/02/19 11:00 U Marijuana THC Carboxy 1290 H Drug Screen Comment SEE NOTE Current Inpatient Medications Current Inpatient Medications: Current Inpatient Medications Acetaminophen (Tylenol) 650 mg PO Q4H PRN PRN Reason: Headache or Minor Fever Stop: 06/01/19 13:27 Al Hydrox/Mg Hydrox/Simethicone (Maalox) 30 ml PO Q4H PRN PRN Reason: GI Upset Stop: 06/01/19 13:27 Bismuth Subsalicylate (Kaopectate) 15 ml PO PRN PRN PRN Reason: Loose Stool Stop: 06/01/19 13:27 Hydroxyzine HCl (Vistaril) 25 mg PO Q4H PRN PRN Reason: Anxiety Stop: 06/01/19 13:27 Magnesium Hydroxide (Milk Of Magnesia) 30 ml PO DAILY PRN PRN Reason: Constipation Stop: 06/01/19 13:27 Miscellaneous (Remove Nicoderm Patch) 1 ea N/A DAILY@0859 [facility] Stop: 06/02/19 08:58 Last Admin: 05/04/19 10:06 Dose: 1 ea Documented by: Nicotine ([facility]oderm Cq) [facility] Stop: 06/02/19 08:59 Last Admin: 05/04/19 10:05 Dose: 7 mg Documented by: Nicotine Polacrilex (Nicorette 2mg) 1 piece MT PRN PRN PRN Reason: Nicotine Withdrawal Stop: 06/01/19 13:32 Last Admin: 05/04/19 12:06 Dose: 1 piece Documented by: Phenazopyridine HCl (Pyridium) 100 mg PO DAILY PRN PRN Reason: DYSURIA/URINARY DISCOMFORT Stop: 06/01/19 16:49 Sertraline HCl (Zoloft) 75 [facility] Stop: 06/03/19 08:59 Last Admin: 05/04/19 10:03 Dose: 75 mg Documented by: Sodium Chloride ([place] Nasal) 1 - 2 sprays NA PRN PRN PRN Reason: Nasal Dryness/Congestion Stop: 06/01/19 13:27 Trazodone HCl (Desyrel) 50 mg PO HS [facility] Stop: 06/02/19 21:59 Last Admin: 05/03/19 21:51 Dose: 50 mg Documented by: Trazodone HCl (Desyrel) 50 mg PO HS PRN PRN Reason: if first dose ineffective Stop: 06/03/19 09:59 Mental Health & Subst Abuse Tx Psychiatrist Name of Psychiatrist: Jersey De La Torre - Dr. Layla Alejandro Psychiatrist's Phone Number: Date of Appointment with Psychiatrist: 06/10/19 Time of Appointment with Psychiatrist: 9:15 AM Therapist Name of Therapist: Alec Smith Therapist's Phone Number: Date of Therapist Appointment: 05/14/19 Time of Therapist Appointment: 2:00 PM Solutions Specialist Name of Solutions Specialist: None Post Discharge Appointments Primary Care Physician Name Of Family Doctor: Jersey De La Torre- [facility] Phone Number: Date of Appointment with PCP: 05/10/19 Time of Appointment with PCP: 1:25 PM Contact Information Discharge Discharge Address: [facility] [place] [address] (1) Depression Depression Type: unspecified Qualified Code(s): F32.9 - Major depressive disorder, single episode, unspecified
[2019-05-04] MEDS: TRAZODONE HCL 50 MG TAB PO SCH (21:16)
[2019-05-05] MEDS: SERTRALINE HCL 50 MG TABLET PO SCH (08:44)
[2019-05-05] MEDS: NICOTINE 7 MG/24 HR TDSY TD SCH (08:49)
[2019-05-05] MEDS ORDERED: SERTRALINE HCL 50 MG TABLET PO ONE (09:21)
--- NOTE | 2019-05-05 11:32 | Psychiatric Progress Note ---
Date of Service May 05, 2019 Impression / Recommendations Impression 18-year-old female admitted voluntarily for inpatient psychiatric hospitalization due to worsening symptoms of depression and suicidal ideation with plan to deeply cut herself. Mood is improving with sleep and Zoloft trial. (1) Suicidal ideation: 05/02 - Admitted to a locked inpatient behavioral health unit, on q15 minute safety checks - Encourage medication initiation/adjustments as indicated - Encourage participation in group and recreational therapies - Gather collateral information from outpatient providers - Suggest family meeting to involve outpatient supports in safety planning - Arrange appropriate aftercare 05/03 -The patient continues to say that it is hard for her to imagine the future without her boyfriend. She notes that, intellectually, she realizes that she is young, "there plenty of fish in the sea," and that it is unhealthy and unwise to allow oneself to designate to another person responsibility for ones on happiness. However, there is fear of being alone, losing her boyfriend permanently, and combining those thoughts with the fact that she believes that she, herself, "poisoned" the relationship by being excessively possessive and inappropriately jealous is greatly distressing to her. -The patient continues to note that she is having thoughts of suicide, although she reliably and convincingly contracts for safety on the unit. (2) Generalized anxiety disorder: 05/02 - Historical diagnosis of generalized anxiety disorder, with history of panic attacks as well - Initiate sertraline 25mg one-time dose today; increasing to 50mg qAM starting tomorrow morning - risks, benefits, and potential side effects reviewed including black box warning for increased suicidality in children and adolescents - patient verbalized understanding and is agreeable with initiating the medication - PRN hydroxyzine for acute anxiety - Encourage participation in group and recreational programming, development of healthy and effective coping strategies - Encourage outpatient therapy and psychiatric medication management - Family meeting with parents 05/03 -The patient tells us that her mother regularly tells the patient that she, the patient, has many of the same traits as the mother, a woman who reportedly carries a diagnosis of borderline personality disorder. Within this context, it will be important to help the patient differentiate between herself, her mother symptoms, and her own struggles. -The patient has tolerated sertraline well, and we will increase the dose of sertraline to 75 mg starting tomorrow. Hopefully, sertraline will be helpful both for depression and anxiety. (3) Depression: 05/02 - Historical diagnosis of major depressive disorder. Current presentation may be more consistent with diagnosis of adjustment disorder or acute stress reaction. Pt also identifies with borderline personality disorder traits which may affect ability to cope and may be further contributing to depressive symptoms, if not explaining them entirely - Sertraline initiated for generalized anxiety as above, likely to also have benefit for mood symptoms - Encourage group and recreational programming to process recent break-up and develop healthy and effective coping strategies 05/03 -Patient does have a history of recurrent depressions. These depressions are not necessarily linked to situational factors and cannot be explained entirely by maladaptive coping strategies and difficulty regulating mood under stress. -As above, the patient's dose of sertraline will be increased to 75 mg tomorrow, and will continue to be titrated as indicated. We will also add trazodone 50 mg at bedtime for sleep, and also as an adjunct to sertraline. -The patient seems to have a good facility with operational thinking and I believe that she will benefit from psychotherapy, possibly cognitive behavioral therapy. This should be pursued on an outpatient basis. 05/05--titrate Zoloft to 100 mg starting today. (4) Personality disorder: 05/02 - Pt reports identification with criteria for borderline personality disorder. Unclear with limited history if symptoms are stemming for personality disorder or better explained by learned behaviors in how to manage relationships - given family history of borderline personality disorder - Strained and co-dependent traits within relationships - Encourage routine visits with a consistent outpatient therapist - explore DBT practices - Gather collateral information from parents to further determine history of symptoms and consistency with this diagnosis 05/03 -Interestingly, the patient is able to tell us which personality traits she believes that she shares with her mother, a woman who reportedly carries a diagnosis of borderline personality disorder. -Some of the behaviors in question seem to have been modeled by the patient's mother, most specifically the instilled belief that ones happiness depends almost entirely on once finding a universally faithful life partner. However, there also appears to be a number of ways in which the patient is not like her mother, and it may be more useful to focus on treating the patient's depression, and helping the patient address issues specific to low self-esteem and immature coping strategies. (5) Abnormal urinalysis: 05/02 - Pt reports frequent, recurrent UTI's and yeast infections - denying present symptoms - Pt was given initial dose of Cefdinir 300mg in the ED; will suspend antibiotic treatment until/unless symptoms are present - Sensitivities ordered in order to guide antibiotic therapy should it be indicated 05/03 -No symptoms of a UTI are reported today. 05/04 --skin karol on final culture, no sensitivies. Inventory Assets Strengths: Willingness for treatment, outpatient psychiatric evaluations already scheduled Needs: assistance with development of effective coping strategies, involvement of parents in treatment Risk Factors Assessment Male: No : Yes Do You Have Access To A Gun?: No Health Problems: No Mental Health Diagnoses: Yes Substance Use Disorders: No Previous Attempt: Yes Previous Attempt; Didn't Tell Anyone: Yes Family History of Suicide: Yes Previous Psychiatric Hospitalization: No Hopelessness: Yes Smoker: Yes Protective Factors Assessment Hindu Beliefs: No : No Responsible for Young Children: No Employed: Yes ([employer]) Stable Relationships: No Supportive Family: Yes Interval History Chief Complaint "I'm feeling better". Review of Systems Sleep Information Total Hours of Sleep: 7.5 Sleep Comments: Elizabet sat up talking with room mate prior to going to bed. Meal Information Percent Meal Consumed - Breakfast: 100 Percent Meal Consumed - Lunch: 75 Percent Meal Consumed - Dinner: 50 Subjective Subjective Patient was seen & assessed and interval progress reviewed with nursing. She is looking forward to family meeting. Feeling she is more hopeful. Sleep is much improved. Tolerating Zoloft. Physical Exam Psychiatric Orientation: alert, oriented x 3 and cooperative Apperance: appropriately dressed, appropriately groomed and appeared stated age Eye Contact: good eye contact Motor Behavior: steady gait and station and no abnormal motor movements Speech: normal rate/rhythm/volume of speech Affect: euthymic affect mood is more hopeful Thought Process: goal directed thought process Thought Content: reality based without delusions Suicidal Thoughts: denies suicidal thoughts Homicidal Thoughts: denies homicidal thoughts Hallucinations: no auditory hallucinations and no visual hallucinations Cognition: recent memory grossly intact, remote memory grossly intact, attention grossly intact and language grossly intact Estimated Intelligence: consistent with education level and + above average estimated intelligence Insight: good insight and + fair insight Judgement: + fair judgement Vital Signs (Past 24 Hours) Last Vital Signs Temp 36.7 C 05/05/19 06:55 Pulse 67 05/05/19 06:56 Resp 18 05/05/19 06:55 BP 107/69 05/05/19 06:56 Pulse Ox 99 05/02/19 13:50 Results & Data Current Inpatient Medications Current Inpatient Medications: Current Inpatient Medications Acetaminophen (Tylenol) 650 mg PO Q4H PRN PRN Reason: Headache or Minor Fever Stop: 06/01/19 13:27 Al Hydrox/Mg Hydrox/Simethicone (Maalox) 30 ml PO Q4H PRN PRN Reason: GI Upset Stop: 06/01/19 13:27 Bismuth Subsalicylate (Kaopectate) 15 ml PO PRN PRN PRN Reason: Loose Stool Stop: 06/01/19 13:27 Hydroxyzine HCl (Vistaril) 25 mg PO Q4H PRN PRN Reason: Anxiety Stop: 06/01/19 13:27 Last Admin: 05/04/19 18:15 Dose: 25 mg Documented by: Magnesium Hydroxide (Milk Of Magnesia) 30 ml PO DAILY PRN PRN Reason: Constipation Stop: 06/01/19 13:27 Miscellaneous (Remove Nicoderm Patch) 1 ea N/A DAILY@0859 [facility] Stop: 06/02/19 08:58 Last Admin: 05/05/19 08:50 Dose: 1 ea Documented by: Nicotine (Nicoderm Cq) 7 mg TD [facility] Stop: 06/02/19 08:59 Last Admin: 05/05/19 08:49 Dose: 7 mg Documented by: Nicotine Polacrilex (Nicorette 2mg) 1 piece MT PRN PRN PRN Reason: Nicotine Withdrawal Stop: 06/01/19 13:32 Last Admin: 05/04/19 12:06 Dose: 1 piece Documented by: Phenazopyridine HCl (Pyridium) 100 mg PO DAILY PRN PRN Reason: DYSURIA/URINARY DISCOMFORT Stop: 06/01/19 16:49 Sertraline HCl (Zoloft) 100 mg PO QAM [facility] Stop: 06/05/19 08:59 Sodium Chloride ([place] Nasal) 1 - 2 sprays NA PRN PRN PRN Reason: Nasal Dryness/Congestion Stop: 06/01/19 13:27 Trazodone HCl (Desyrel) 50 mg PO HS [facility] Stop: 06/02/19 21:59 Last Admin: 05/04/19 21:16 Dose: 50 mg Documented by: Trazodone HCl (Desyrel) 50 mg PO HS PRN PRN Reason: if first dose ineffective Stop: 06/03/19 09:59 Mental Health & Subst Abuse Tx Psychiatrist Name of Psychiatrist: Jersey De La Torre - Dr. Layla Alejandro Psychiatrist's Phone Number: Date of Appointment with Psychiatrist: 06/10/19 Time of Appointment with Psychiatrist: 9:15 AM Therapist Name of Therapist: Alec Smith Therapist's Phone Number: Date of Therapist Appointment: 05/14/19 Time of Therapist Appointment: 2:00 PM Counseling Specialist Name of Counseling Specialist: None Post Discharge Appointments Primary Care Physician Name Of Family Doctor: Jersey De La Torre- [facility] Phone Number: Date of Appointment with PCP: 05/10/19 Time of Appointment with PCP: 1:25 PM Contact Information Discharge Discharge [address]: [address] [place] [address] [place] [address] (1) Depression Depression Type: unspecified Qualified Code(s): F32.9 - Major depressive disorder, single episode, unspecified
[2019-05-05] MEDS: NICOTINE POLACRILEX 2 MG GUM MT PRN (12:58)
[2019-05-05] MEDS ORDERED: TRAZODONE HCL 100 MG TAB PO SCH (22:00)
[2019-05-06] MEDS ORDERED: SERTRALINE HCL 100 MG TABLET PO SCH (09:00)
--- NOTE | 2019-05-06 09:09 | Discharge Summary ---
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 Follow-up/Referrals: Doug Medina MD [Primary Care Provider] - Diet: Regular Addtl Attending Provider Instructions: SPECIAL CARE INSTRUCTIONS: 1. Follow through with your scheduled aftercare appointments. If unable to keep an appointment, please call to reschedule. 2. Take your medication only as prescribed. Medication should not be changed or stopped without the approval of your doctor. In the event of worsening symptoms or concerns about side effects, contact your doctor immediately. 3. Utilize new healthy coping skills, anger management skills, and stress management skills learned during your hospitalization. Journal feelings and process them with a support person. Identify stressors or situations that may result in relapse, deterioration or inappropriate behaviors and develop a plan to deal with those issues. 4. If your coping skills are ineffective and you are in crisis, contact your outpatient providers for direction. If unable to reach your providers, please call the CAN HELP LINE AT or go to the closest Emergency Room. 5. Avoid alcohol and un-prescribed drugs. 6. You have been provided with the Mental Health Advance Directives Pamphlet for your review. AFTERCARE APPOINTMENTS: * Please call your insurance company prior to your scheduled appointment to confirm your aftercare providers are covered. Take your insurance information to your appointments. WHO TO CALL AND WHEN: Medical Emergencies: For questions or emergencies related to your hospital stay, please contact the Inpatient Behavioral Health Unit at [phone]. A all around gear machine operator is on-call 07/11 for the Behavioral Health Unit for emergencies At any time you feel your situation is an emergency, you may also call 911 immediately. Your Discharge Instructions noted above were prepared by provider Laya Looney PA-C. Pending Studies at Discharge: No Stand-Alone Forms: [facility], Smoking Cessation, Suicide Prevention Resources Medications and DC Order Prescriptions: New trazodone 50 mg Tablet 50 mg PO HS PRN (Reason: insomnia) 30 Days Qty: 30 RF: 0 sertraline 100 mg Tablet 100 mg PO QAM 30 Days Qty: 30 RF: 0 hydroxyzine HCl 25 mg Tablet 25 mg PO Q4H PRN (Reason: anxiety) 30 Days Qty: 30 RF: 0 Continued Azo Urinary Pain Relief 97.5 mg Tablet 97.5 mg PO DAILY PRN (Reason: Pain) RF: 0 Discharge Orders: Discharge Order (Routine); Ordered 05/06/19 Ordered By: Laya Looney Admission Data Admit Date/Time: 05/02/19 13:28 Attending Provider: Lucy Orozco Admit Provider: Lucy Orozco Primary Care Provider: Doug Medina Other Interventions: Discharge Summary Assessment (RN) Last Done: 05/06/19 11:02 PSY Interdisciplinary Discharge Planning Last Done: 05/06/19 11:01 DC Date/Time DO NOT enter until pt leaves facility: 05/06/19 11:30 Coding Level of Care Code 68956 D/C day mgmt > 30 min Diagnoses Suicidal ideation R45.851 Generalized anxiety disorder F41.1 Depression F32.9 Depression Type: unspecified Personality disorder F60.9 Abnormal urinalysis R82.90
[2019-05-06] MEDS: NICOTINE 7 MG/24 HR TDSY TD SCH (09:35)
== END 2019-05-06 11:30 | disposition home or self-care (01) | DRG 880 ==
LOC: ED 10:36 → 3S 13:28